=== PATIENT | male | born 1985 | race Caucasian/White ===

== ENCOUNTER 2016-06-26 12:13 | Emergency (ER) | payer SELFPAY ==
[~2016-06-26 12:13] MED LIST: KEFLEX500 MG PO
[2016-06-26 13:16] LABS: HEMOGLOBIN 13.8 gm/dl (14.0-17.5); RED BLOOD COUNT 4.63 M/UL (4.20-5.50); WHITE BLOOD COUNT 8.5 K/UL (4.5-11.0)
[2016-06-26 13:42] LABS: BUN/CREATININE RATIO 22 (0-10)
== END 2016-06-26 14:50 | disposition home or self-care (01) ==
LOC: ER1 12:13
PROVIDERS: Emergency Medicine
DX: R07.89 Other chest pain (principal); L98.9 Disorder of the skin and subcutaneous tissue, unspecified; F17.200 Nicotine dependence, unspecified, uncomplicated
CPT/HCPCS: 36415; 71020; 80053; 82550; 82553; 83874; 84484; 85025; 85379; 93005; 96360; 99285; J1885; Q9963

== ENCOUNTER 2016-06-26 16:11 | Emergency (ER) | payer SELFPAY ==
[2016-06-26 19:27] LABS: RED BLOOD COUNT 4.59 M/UL (4.20-5.50); WHITE BLOOD COUNT 10.3 K/UL (4.5-11.0)
[2016-06-26 19:58] LABS: BUN/CREATININE RATIO 11 (0-10)
== END 2016-06-27 01:05 | disposition home or self-care (01) ==
LOC: ER1 16:11
PROVIDERS: Family Medicine
DX: J18.9 Pneumonia, unspecified organism (principal); J90 Pleural effusion, not elsewhere classified; F15.10 Other stimulant abuse, uncomplicated; F12.10 Cannabis abuse, uncomplicated; F17.200 Nicotine dependence, unspecified, uncomplicated
CPT/HCPCS: 36415; 71020; 80053; 80307; 81001; 82550; 82553; 83874; 84484; 85025; 93005; 96374; 99285; J7050; Q9963